=== PATIENT | female | born 1975 | race Caucasian/White ===

== ENCOUNTER 2017-10-27 09:30 | Emergency (ER) | payer OTHER ==
[2017-10-27 09:47] VITALS: BP 126/78; RESP 16
[2017-10-27] MEDS ORDERED: DIPH,PERTUS(ACELL)TETVAC-LF 0.5 ML VIAL IM ONE (10:18)
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
[2017-10-27 11:06] VITALS: PULSE 90; TEMP 98
== END 2017-10-27 11:05 | disposition home or self-care (01) ==
LOC: EC 09:30
DX: T24.322A Burn of third degree of left knee, initial encounter (principal); T24.292A Burn of second degree of multiple sites of left lower limb, except ankle and foot, initial encounter; Z23 Encounter for immunization; Z87.891 Personal history of nicotine dependence; Z88.0 Allergy status to penicillin; Z88.5 Allergy status to narcotic agent; Z88.8 Allergy status to other drugs, medicaments and biological substances; X19.XXXA Contact with other heat and hot substances, initial encounter
CPT/HCPCS: 16020; 90471; 90715; 99283

== ENCOUNTER 2020-09-24 09:27 | Emergency (ER) | payer OTHER ==
[2020-09-24 09:35] VITALS: RESP 18; TEMP 98.6
--- NOTE | 2020-09-24 10:03 | ED ---
General Adult HPI - General Chief complaint: Shortness of Breath Stated complaint: cough/SOB Time Seen by Provider: 09/24/20 09:36 Source: patient, RN notes reviewed Mode of arrival: ambulatory Limitations: no limitations - History of Present Illness Initial comments: This a 44-year-old female presents emergency Department chief complaint of shortness of breath, COVID-19. Patient states that she's been sick for 8-9 days tested positive on Monday at [employer]. Patient states that symptoms are not improving. She's been taken Motrin for fever. She denies any significant past no history denies history of being immunocompromised, lung disease. Patient has leg pain leg swelling no chest pain patient states she's had on-and-off fevers bodyaches mild congestion. - Related Data Home Medications Medication Instructions Recorded Confirmed Ibuprofen [Motrin Ib] 600 - 800 mg PO Q6H PRN 10/27/17 10/27/17 Previous Rx's Medication Instructions Recorded Cephalexin [Keflex] 500 mg PO Q6HR #40 cap 10/27/17 Ibuprofen [Motrin] 600 mg PO Q8HR PRN #30 tab 10/27/17 SILVER sulfADIAZINE Cream 1 applic TOPICAL BID #30 gram 10/27/17 [Silvadene 1% Cream] Dexamethasone [Decadron] 6 mg PO DAILY #5 tablet 09/24/20 Allergies Allergy/AdvReac Type Severity Reaction Status Date / Time adhesive tape Allergy Rash/Hives Verified 09/24/20 09:35 bacitracin Allergy Rash/Hives Verified 09/24/20 09:35 amoxicillin AdvReac Nausea & Verified 10/27/17 09:55 Vomiting & Diarrhea codeine AdvReac Nausea & Verified 10/27/17 09:55 Vomiting & Diarrhea Opioids - Morphine Analogues AdvReac Nausea & Verified 10/27/17 09:55 Vomiting & Diarrhea Review of Systems ROS Statement: Those systems with pertinent positive or pertinent negative responses have been documented in the HPI. ROS Other: All systems not noted in ROS Statement are negative. Past Medical History Past Medical History: No Reported History History of Any Multi-Drug Resistant Organisms: None Reported Past Surgical History: Hernia Repair Past Psychological History: Depression Smoking Status: Never smoker Past Alcohol Use History: Occasional Past Drug Use History: None Reported General Exam Limitations: no limitations General appearance: alert, in no apparent distress Head exam: Present: atraumatic, normocephalic, normal inspection Eye exam: Present: normal appearance, PERRL, EOMI. Absent: scleral icterus, conjunctival injection, periorbital swelling ENT exam: Present: normal exam, normal oropharynx, mucous membranes moist Neck exam: Present: normal inspection, full ROM. Absent: tenderness, meningismus, lymphadenopathy Respiratory exam: Present: normal lung sounds bilaterally. Absent: respiratory distress, wheezes, rales, rhonchi, stridor Cardiovascular Exam: Present: normal rhythm, tachycardia, normal heart sounds. Absent: systolic murmur, diastolic murmur, rubs, gallop, clicks GI/Abdominal exam: Present: soft, normal bowel sounds. Absent: distended, tenderness, guarding, rebound, rigid Neurological exam: Present: alert Skin exam: Present: warm, dry, intact, normal color. Absent: rash Course Vital Signs 09/24/20 09/24/20 09:31 09:56 Temperature 98.6 F Pulse Rate 106 H Respiratory 18 18 Rate Blood Pressure 110/73 O2 Sat by Pulse 92 L Oximetry Medical Decision Making - Medical Decision Making X-ray shows bilateral patchy infiltrates patient was able to ambulate states that she felt much better states she's not been getting up moving much. Patient states that she prefers to go home she was offered admission patient declines. Return parameters were discussed. Disposition Clinical Impression: COVID-19 Disposition: HOME SELF-CARE Condition: Stable Instructions (If sedation given, give patient instructions): Coronavirus Disease 2019 (COVID-19) Additional Instructions: Please return to the Emergency Department if symptoms worsen or any other concerns. Prescriptions: Dexamethasone [Decadron] 6 mg PO DAILY #5 tablet Is patient prescribed a controlled substance at d/c from ED?: No Referrals: None,Stated [Primary Care Provider] - 1-2 days Time of Disposition: 10:51
--- NOTE | 2020-09-24 10:29 | XR ---
EXAMINATION TYPE: XR chest 2V DATE OF EXAM: 09/24/2020 COMPARISON: NONE TECHNIQUE: PA and lateral views submitted. HISTORY: Shortness of breath FINDINGS: There are patchy bilateral areas of infiltrate with tiny bilateral effusion. No pneumothorax. Scolios is noted. Heart size normal. Mild hyperinflation. IMPRESSION: 1. Patchy bilateral infiltrate correlate for pneumonia.
[2020-09-24 11:04] VITALS: BP 109/74; PULSE 91
== END 2020-09-24 11:03 | disposition home or self-care (01) ==
LOC: EC 09:27
DX: U07.1 COVID-19 (principal); F32.9 Major depressive disorder, single episode, unspecified
CPT/HCPCS: 71046; 99284

== ENCOUNTER 2021-04-19 09:17 | Emergency (ER) | payer OTHER ==
[2021-04-19 09:49] VITALS: BP 131/96; PULSE 83; RESP 18; TEMP 98.2
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
== END 2021-04-19 11:31 | disposition home or self-care (01) ==
LOC: EC 09:17
DX: S00.93XA Contusion of unspecified part of head, initial encounter (principal); S02.5XXA Fracture of tooth (traumatic), initial encounter for closed fracture; S06.0X0A Concussion without loss of consciousness, initial encounter; V86.99XA Unspecified occupant of other special all-terrain or other off-road motor vehicle injured in nontraffic accident, initial encounter
CPT/HCPCS: 70450; 70486; 72125; 99283

== ENCOUNTER → 2022-03-01 | Outpatient (CLI) | payer MEDICAID ==
--- NOTE | 2022-03-02 08:02 | MM ---
Reason for Exam: Screening (asymptomatic). Last mammogram was performed 10 year(s) and 3 month(s) ago. Patient History: Menarche at age 13. First Full-Term at age 27. 2016, Bilateral Implants. Paternal aunt had breast cancer, age 40. Paternal aunt had breast cancer, age 60. Paternal aunt had breast cancer, age 67. Mother had breast cancer, age 45. Risk Values: Darby 5 year model risk: 1.7%. NCI Lifetime model risk: 17.8%. Prior Study Comparison: 12/27/2011 Bilateral Diagnostic Mammogram, [facility]. Tissue Density: The breast tissue is heterogeneously dense. This may lower the sensitivity of mammography. Findings: Analyzed By CAD. Bilateral breast implants. There is a mass anterior middle depth measuring 23 mm in the retroareolar region of the right breast. There is no left suspicious group of microcalcifications or new suspicious mass in either breast. Overall Assessment: Incomplete: need additional imaging evaluation, BI-RAD 0 Management: Diagnostic Breast Ultrasound of the right breast. Diagnostic Mammogram of the right breast. A clinical breast exam by your physician is recommended on an annual basis and results should be correlated with mammographic findings. [facility] will attempt to contact patient to return for supplemental views and ultrasound if indicated. Electronically signed and approved by: Lobito Koo DO
== END | disposition home or self-care (01) ==
LOC: RADMAMWWP 14:06
PROVIDERS: ATTEND Obstetrics & Gynecology
DX: Z12.31 Encounter for screening mammogram for malignant neoplasm of breast (principal); Z78.0 Asymptomatic menopausal state; Z80.3 Family history of malignant neoplasm of breast
CPT/HCPCS: 77063; 77067

== ENCOUNTER 2022-07-02 13:25 | Emergency (ER) | payer MEDICAID ==
[2022-07-02 13:35] VITALS: RESP 18
[2022-07-02] MEDS ORDERED: KETOROLAC 15 MG/ML 1 ML VIAL IVP STA (13:46)
--- NOTE | 2022-07-02 13:49 | ED ---
General Adult HPI - General Chief complaint: Extremity Injury, Upper Stated complaint: Fall-L arm injury Time Seen by Provider: 07/02/22 13:37 Source: patient, RN notes reviewed Mode of arrival: ambulatory Limitations: no limitations - History of Present Illness Initial comments: A 6-year-old female with no significant past medical history presents to the emergency department with a chief complaint of left shoulder pain. She reports that last thing she was getting out of her 's truck and missed the step and fell forward onto her left shoulder. She reports worsening pain and oozing to her upper arm. Previous injury. She took Motrin last night with mild relief. This morning she is having difficulty lifting her arm due to the p ain. She denies hitting her head, loss of consciousness, any anticoagulant use. She denies any numbness or tingling - Related Data Home Medications Medication Instructions Recorded Confirmed Ibuprofen [Motrin Ib] 600 mg PO Q6H PRN 10/27/17 09/24/20 Etonogestrel/Ethinyl Estradiol 1 ring VG DIRECTED 09/24/20 09/24/20 [Nuvaring Vaginal Ring] Previous Rx's Medication Instructions Recorded dexAMETHasone [Decadron] 6 mg PO DAILY #5 tablet 09/24/20 HYDROcodone/APAP 5-325MG [Buchanan 5] 1 each PO Q6HR PRN #12 tab 07/02/22 traMADol HCl [Ultram] 50 mg PO Q6H PRN #20 tab 07/02/22 Allergies Allergy/AdvReac Type Severity Reaction Status Date / Time adhesive tape Allergy Rash/Hives Verified 07/02/22 13:35 bacitracin Allergy Rash/Hives Verified 07/02/22 13:35 amoxicillin AdvReac Nausea & Verified 07/02/22 13:35 Vomiting & Diarrhea codeine AdvReac Nausea & Verified 07/02/22 13:35 Vomiting & Diarrhea Opioids - Morphine Analogues AdvReac Nausea & Verified 07/02/22 13:35 Vomiting & Diarrhea Review of Systems ROS Statement: Those systems with pertinent positive or pertinent negative responses have been documented in the HPI. ROS Other: All systems not noted in ROS Statement are negative. Past Medical History Past Medical History: No Reported History History of Any Multi-Drug Resistant Organisms: None Reported Past Surgical History: Hernia Repair Past Psychological History: Depression Smoking Status: Never smoker Past Alcohol Use History: Occasional Past Drug Use History: None Reported General Exam Limitations: no limitations General appearance: alert, in no apparent distress Head exam: Present: atraumatic, normocephalic, normal inspection Eye exam: Present: normal appearance, PERRL, EOMI. Absent: scleral icterus, conjunctival injection, periorbital swelling ENT exam: Present: normal exam, mucous membranes moist Neck exam: Present: normal inspection. Absent: tenderness, meningismus, lymphadenopathy Respiratory exam: Present: normal lung sounds bilaterally. Absent: respiratory distress, wheezes, rales, rhonchi, stridor Cardiovascular Exam: Present: regular rate, normal rhythm, normal heart sounds. Absent: systolic murmur, diastolic murmur, rubs, gallop, clicks GI/Abdominal exam: Present: soft, normal bowel sounds. Absent: distended, tenderness, guarding, rebound, rigid Extremities exam: Present: normal inspection, full ROM, normal capillary refill. Absent: tenderness, pedal edema, joint swelling, calf tenderness Left Shoulder Exam: Present: tenderness, swelling, ecchymosis. Absent: normal inspection, full ROM (secondary to pain), deformity, crepitus Upper Arm exam: Present: tenderness, swelling, ecchymosis (Medial axilla region ). Absent: normal inspection, full ROM, deformity, crepidus Elbow exam: Present: normal inspection, full ROM, tenderness, swelling. Absent: deformity, crepitus Forearm Wrist exam: Present: normal inspection, full ROM. Absent: tenderness, swelling Back exam: Present: normal inspection Neurological exam: Present: alert, oriented X3, CN II-XII intact Psychiatric exam: Present: normal affect, normal mood Skin exam: Present: warm, dry, intact, normal color. Absent: rash Course Vital Signs 07/02/22 07/02/22 13:33 15:36 Temperature 98.5 F 98.1 F Pulse Rate 99 100 Respiratory 18 18 Rate Blood Pressure 127/83 134/73 O2 Sat by Pulse 98 100 Oximetry - Reevaluation(s) Reevaluation #1: 07/02/22 14:[address] Sethi who reviewed XR and recommends CT L shoulder Reevaluation #2: 07/02/22 15:30 CT results discussed with Dr. Sethi, orthopedist shell mold bonder who recommends's placing patient in a sling and follow-up with her on Monday Medical Decision Making - Medical Decision Making Was pt. sent in by a medical professional or institution (LLOYD Burr, [employer], urgent care, hospital, or halfway...) When possible be specific @ -[No] Did you speak to anyone other than the patient for history (EMS, parent, family, police, friend...)? What history was obtained from this source @ -[No] Did you review nursing and triage notes (agree or disagree)? Why? @ -[I reviewed and agree with nursing and triage notes] Were old charts reviewed (outside hosp., previous admission, EMS record, old EKG, old radiological studies, urgent care reports/EKG's, halfway records)? Report findings @ -[No old charts were reviewed] Differential Diagnosis (chest pain, altered mental status, abdominal pain women, abdominal pain men, vaginal bleeding, weakness, fever, dyspnea, syncope, headache, dizziness, GI bleed, back pain, seizure, CVA, palpatations, mental health)? @ -[not applicable] EKG interpreted by me (3pts min.). @ -[As above] X-rays interpreted by me (1pt min.). @ -Acute transverse fracture of the left humeral neck no dislocation there is [address] interpreted by me (1pt min.). @ -CT left shoulder with acute comminuted humeral neck fracture no dislocation with subcutaneous edema and bruising U/S interpreted by me (1pt. min.). @ -[None done] What testing was considered but not performed or refused? (CT, X-rays, U/S, labs)? Why? @ -[None] What meds were considered but not given or refused? Why? @ -[None] Did you discuss the management of the patient with other professionals (professionals i.e. LLOYD Burr, [employer], lab, RT, psych nurse, director of social services, audio/visual manager, teacher, third officer, therapeutic case manager)? Give summary @ - Case discussed with Dr. Sethi, orthopedist shell mold bonder who reviewed patient imaging results and recommends placing the patient in a waiting with close follow-up on Monday morning at his office. Was smoking cessation discussed for >3mins.? @ -[No] Was critical care preformed (if so, how long)? @ -[No] Were there social determinants of health that impacted care today? How? (Homelessness, low income, unemployed, alcoholism, drug addiction, transportation, low edu. Level, literacy, decrease access to med. care, senior living, rehab)? @ -[No] Was there de-escalation of care discussed even if they declined (Discuss DNR or withdrawal of care, Hospice)? DNR status @ -[No] What co-morbidities impacted this encounter? (DM, HTN, Smoking, COPD, CAD, Cancer, CVA, ARF, Chemo, Hep., AIDS, mental health diagnosis, sleep apnea, morbid obesity)? @ -[None] Was patient admitted / discharged? Hospital course, mention meds given and route, prescriptions, significant lab abnormalities, going to OR and other pertinent info. @ ---46 year-old female to the emergency department with L shoulder pain. Patient had a history and physical performed. Physical exam reveals swollen, ecchymotic L upper arm with decreased ROM secondary to pain, distal NVI remains intacts. X-rays reveals humeral neck fx.. sHe should was given Toradol, morphine, zofran with symptomatic relief on the emergency department. I discussed the results in Detail with the patient, patient verbalized understanding all questions were addressed. She was given a prescription for Buchanan 5's and tramadol and placed in a shoulder immobilizer. Patient was encouraged to follow up with her primary care in 1-2 days. Return precautions were discussed. The patient was discharged in stable condition. I discussed the case with RACHEL Delgado who agrees with the plan of care Undiagnosed new problem with uncertain prognosis? @ -[No] Drug Therapy requiring intensive monitoring for toxicity (Heparin, Nitro, Insulin, Cardizem)? @ -[No] Were any procedures done? @ -[No] Diagnosis/symptom? @ -Left humeral neck fracture Acute, or Chronic, or Acute on Chronic? @ -acute Uncomplicated (without systemic symptoms) or Complicated (systemic symptoms)? @ -uncomplicated Side effects of treatment? @ -[No] Exacerbation, Progression, or Severe Exacerbation? @ -[No] Poses a threat to life or bodily function? How? (Chest pain, [place], [place], pneumonia, PE, COPD, DKA, ARF, appy, cholecystitis, CVA, Diverticulitis, Homicidal, Suicidal, threat to staff... and all critical care pts) @ -low likelihood Disposition Clinical Impression: Humeral surgical neck fracture Disposition: HOME SELF-CARE Condition: Stable Instructions (If sedation given, give patient instructions): Arm Fracture in Adults (ED) Additional Instructions: Return to the nearest emergency department if symptoms worsen or persist. Prescriptions: HYDROcodone/APAP 5-325MG [Buchanan 5] 1 each PO Q6HR PRN #12 tab PRN Reason: Pain traMADol HCl [Ultram] 50 mg PO Q6H PRN #20 tab PRN Reason: Pain Is patient prescribed a controlled substance at d/c from ED?: Yes When asked, does pt state using other controlled substances?: No If prescribed controlled substance>3 days was MAPS reviewed?: Prescribed <3 Days If opioid is for acute pain is fill amount 7 days or less?: No If Rx opioid, was Start Talking consent form obtained?: No Referrals: None,Stated [Primary Care Provider] - 1-2 days Jeff Sethi DO [Doctor of Osteopathic Medicine] - 1-2 days Time of Disposition: 15:32
--- NOTE | 2022-07-02 14:21 | XR ---
EXAMINATION TYPE: XR elbow limited LT DATE OF EXAM: 07/02/2022 COMPARISON: NONE HISTORY: Pain TECHNIQUE: 2 views FINDINGS: Elbow joint spaces are normal. No fracture nor dislocation. No evidence of joint effusion. IMPRESSION: Negative left elbow exam.
--- NOTE | 2022-07-02 14:23 | XR ---
EXAMINATION TYPE: XR shoulder complete LT DATE OF EXAM: 07/02/2022 COMPARISON: NONE HISTORY: 4 views TECHNIQUE: 4 views FINDINGS: There is an acute transverse fracture of the left humeral neck. No dislocation. There is 6 mm displacement. No focal bone destruction. IMPRESSION: Acute fracture left humeral neck
[2022-07-02] MEDS ORDERED: ONDANSETRON 4 MG ODT STARTER PACK 2 TAB BTL PO STA (14:29)
[2022-07-02] MEDS ORDERED: ONDANSETRON 4 MG/2 ML VIAL IVP STA (15:21)
[2022-07-02] MEDS ORDERED: MORPHINE SULFATE 2 MG/ML SYRINGE IVP ONE (15:21)
--- NOTE | 2022-07-02 15:24 | CT ---
EXAMINATION TYPE: CT shoulder LT wo con DATE OF EXAM: 07/02/2022 COMPARISON: None HISTORY: Left humeral fx CT DLP: 370.7 mGycm Automated exposure control for dose reduction was used. Images obtained from the top of the shoulder to the mid humerus with no contrast. There is acute proximal humerus fracture involving the neck. There is comminution. No significant dis placement of the major fragments. No focal bone destruction. No evidence of a soft tissue mass. There is some subcutaneous edema anterior to the shoulder and consistent with bruising. Muscle bundles fara ear intact. There is slight anterior angulation at the fracture site. The AC joint is intact. The sca pula appears intact. Left upper ribs are intact. IMPRESSION: Acute comminuted humeral neck fracture. No dislocation. Subcutaneous edema and bruising.
[2022-07-02 15:37] VITALS: BP 134/73; PULSE 100; TEMP 98.1
== END 2022-07-02 15:53 | disposition home or self-care (01) ==
LOC: EC 13:25
DX: S42.212A Unspecified displaced fracture of surgical neck of left humerus, initial encounter for closed fracture (principal); F32.A Depression, unspecified; Z91.048 Other nonmedicinal substance allergy status; Z88.5 Allergy status to narcotic agent; Z88.1 Allergy status to other antibiotic agents; Z88.8 Allergy status to other drugs, medicaments and biological substances; W10.8XXA Fall (on) (from) other stairs and steps, initial encounter
CPT/HCPCS: 73030; 73070; 73200; 99284; 96374; 96375 ×2; J2405; J2270; J1885; S0119

== ENCOUNTER → 2024-01-17 | Outpatient (CLI) | payer MEDICAID ==
--- NOTE | 2024-02-05 18:20 | MM ---
Reason for Exam: Hx of breast augmentation, asymptomatic. Last mammogram was performed 1 year(s) and 10 month(s) ago. Patient History: Menarche at age 13. First Full-Term at age 27. Postmenopausal. 2016, Bilateral Implants. Paternal aunt had breast cancer, age 40. Paternal aunt had breast cancer, age 60. Paternal aunt had breast cancer, age 67. Mother had breast cancer, age 45. Risk Values: Darby 5 year model risk: 1.8%. NCI Lifetime model risk: 17.3%. Prior Study Comparison: 12/27/2011 Bilateral Diagnostic Mammogram, [facility]. 03/01/2022 Bilateral MG 3D screen mammo imp/cad., [facility]. Tissue Density: The breasts are heterogeneously dense, which may obscure small masses. Findings: Analyzed By CAD. Bilateral retropectoral silicone implants. Enlarging 3 cm partially obscured mass central, subareolar right breast for which further ultrasound evaluation is recommended. Asymmetric density superior left MLO view is more defined and incompletely disperses on 3-D images. This may represent superimposition shadow but further evaluation is recommended. Overall Assessment: Incomplete: need additional imaging evaluation, BI-RAD 0 Management: Diagnostic Breast Ultrasound of the right breast. Special View Mammogram of the left breast. [facility] will attempt to contact patient to return for supplemental views and ultrasound if indicated. Electronically signed and approved by: Milton Lopez M.D. Radiologist
== END | disposition home or self-care (01) ==
LOC: RADMAMWWP 17:50
PROVIDERS: ATTEND Obstetrics & Gynecology
DX: Z12.31 Encounter for screening mammogram for malignant neoplasm of breast (principal); Z78.0 Asymptomatic menopausal state; Z80.3 Family history of malignant neoplasm of breast
CPT/HCPCS: 77063; 77067

== ENCOUNTER → 2024-02-12 | Outpatient (CLI) | payer MEDICAID ==
--- NOTE | 2024-02-12 14:35 | USB ---
Reason for Exam: Additional evaluation requested from abnormal screening. Patient History: Menarche at age 13. First Full-Term at age 27. Postmenopausal. 2016, Bilateral Implants. Paternal aunt had breast cancer, age 40. Paternal aunt had breast cancer, age 60. Paternal aunt had breast cancer, age 67. Mother had breast cancer, age 45. Risk Values: Darby 5 year model risk: 1.8%. NCI Lifetime model risk: 17.3%. Technique: Method: Targeted. Prior Study Comparison: 12/27/2011 Bilateral Diagnostic Mammogram, [facility]. 03/01/2022 Bilateral MG 3D screen mammo imp/cad., [facility]. 01/17/2024 Bilateral MG 3D screen mammo imp/cad., [facility]. Findings: The axilla of the right breast and the retroareolar of the right breast were scanned. There is a 3.0 x 3.1 x 1.3 cm complex cyst with a few scattered internal echoes from debris. This is at the 12:00 position 1 cm from the nipple correlates with the mammogram. This has enlarged from the comparison 2021. The debris appears to be new from comparison. Cyst aspiration may be warranted. Overall Assessment: Suspicious, BI-RAD 4 Management: Aspiration of the right breast. A clinical breast exam by your physician is recommended on an annual basis and results should be correlated with mammographic findings. This exam should not preclude additional follow-up of suspicious palpable abnormalities. Results were given to the patient verbally at the time of exam. [facility], , 02/12/2024 2:10 PM. Electronically signed and approved by: Yury Alvarez D.O. Radiologis
--- NOTE | 2024-02-12 14:37 | MM ---
Reason for Exam: Additional evaluation requested from abnormal screening. Last screening mammogram was performed less than 1 month ago. Patient History: Menarche at age 13. First Full-Term at age 27. Postmenopausal. 2016, Bilateral Implants. Paternal aunt had breast cancer, age 40. Paternal aunt had breast cancer, age 60. Paternal aunt had breast cancer, age 67. Mother had breast cancer, age 45. Risk Values: Darby 5 year model risk: 1.8%. NCI Lifetime model risk: 17.3%. Prior Study Comparison: 12/27/2011 Bilateral Diagnostic Mammogram, [facility]. 03/01/2022 Bilateral MG 3D screen mammo imp/cad., [facility]. 01/17/2024 Bilateral MG 3D screen mammo imp/cad., [facility]. Tissue Density: Left: There are scattered areas of fibroglandular density. Findings: Analyzed By CAD. Area of increased density is within the subareolar right breast. Ultrasound is recommended for additional workup. There is asymmetric density in the upper left breast. This disperses on compression. No discrete abnormality identified on the mediolateral view. Short-term follow-up of the left breast is recommended in 6 months. Overall Assessment: Incomplete: need additional imaging evaluation, BI-RAD 0 Management: Diagnostic Breast Ultrasound of the right breast. Diagnostic Mammogram of the left breast in 6 months. A negative mammogram report should not preclude additional follow up of suspicious palpable abnormalities. Patient should continue monthly self breast exam. A clinical breast exam by your physician is recommended on an annual basis and results should be correlated with mammographic findings. Note on Darby scores and lifetime risk: 1. A Darby score greater than 3% is considered moderate risk. If this is the case, consider specialist referral to assess eligibility for a risk reducing agent. 2. If overall lifetime risk for the development of breast cancer is 20% or higher, the patient may qualify for future screening with alternating mammogram and breast MRI. [facility], , 02/12/2024 2:34 PM. Electronically signed and approved by: Yury Alvarez D.O. Radiologis
== END | disposition home or self-care (01) ==
LOC: RADMAMWWP 13:19
PROVIDERS: ATTEND Obstetrics & Gynecology
DX: R92.8 Other abnormal and inconclusive findings on diagnostic imaging of breast
CPT/HCPCS: 77061; 77065

== ENCOUNTER → 2024-02-27 | Day surgery (SDC) | payer MEDICAID ==
--- NOTE | 2024-03-04 13:53 | USB ---
Risk Values: Darby 5 year model risk: 1.8%. NCI Lifetime model risk: 17.3%. Prior Study Comparison: 03/01/2022 Bilateral MG 3D screen mammo imp/cad., [facility]. 01/17/2024 Bilateral MG 3D screen mammo imp/cad., [facility]. 02/12/2024 Left MG 3D work up w/cad w/imp , [facility]. Pathology Description: Location: 12 o'clock. The ultrasound guided cyst aspiration procedure was explained to the patient. The risks, benefits, alternatives were discussed. An informed consent was then obtained. A time out was performed The patient was placed in supine positioning for imaging and for the procedure. The overlying skin was prepped with betadine and sterilely draped in usual sterile fashion. 10 ml 1% lidocaine was used as anesthetic into the skin and deeper breast tissue up to area of concern right breast 12:00 position 1 cm from the nipple. Under ultrasound guidance, an 12-gauge spinal needle was advanced into the cyst and aspiration yielded 2 mL of blood tinged fluid. The fluid was labeled and sent for laboratory analysis. A clip was left in lesion. Good hemostasis was obtained with direct pressure. Postprocedure mammogram: The patient was transferred to mammography for physician ordered post procedure mammogram for clip placement verification. The clip is in the expected region of the biopsy. The patient tolerated the procedure well without any immediate complication. The patient was discharged to home in stable condition. Impression: Successful ultrasound guided cyst aspiration right breast. Cytology pending. [facility], , 02/27/2024 2:29 PM. Pathology Results: Result: Benign, Fibrocystic change. Pathology and radiology were reviewed. Findings are concordant. RIGHT BREAST, ASPIRATION: Cyst fluid of fibrocystic change having ductal cells with apocrine metaplasia. Negative for diagnostic cytologic malignancy. Overall Assessment: Benign Management: Diagnostic Breast Ultrasound of the right breast in 6 months. Electronically signed and approved by: Lucas Ferrell M.D. Radiologis
== END ==
LOC: RADUSWWP 12:39
PROVIDERS: ATTEND Surgery
DX: N60.81 Other benign mammary dysplasias of right breast (principal)
CPT/HCPCS: 76942; 88173; 88305